=== PATIENT | male | born 1995 | race Caucasian/White ===

== ENCOUNTER 2017-04-29 06:24 | Emergency (ER) | payer OTHER ==
[~2017-04-29] VITALS: Ht 177.8 cm; Wt 120.5 kg
[~2017-04-29 06:24] MED LIST: /LEVE75TA PO; ACET30TAB PO; CIPR-249 PO; FLOM5CAP PO; FOLI1TAB4 PO; FOLI1TAB86 PO; KEPP1TAB2 PO; LEVA1TAB2 PO; OXYCO5TA PO; PERC5TAB12 PO; TYLE650T25 PO
[2017-04-29 06:29] VITALS: BP 159/99
[2017-04-29] MEDS ORDERED: AMOX500C PO (06:33)
[2017-04-29] MEDS ORDERED: MOTR200T44 PO (06:33)
[2017-04-29] MEDS ORDERED: IBUPROFEN 800 MG TAB PO ONE (06:45)
[2017-04-29] MEDS ORDERED: CLINDAMYCIN 150 MG CAP PO ONE (06:45)
[2017-04-29] MEDS ORDERED: CLIN150C14 PO (06:47)
[2017-04-29] MEDS ORDERED: IBUP80TA PO (06:47)
== END 2017-04-29 06:59 | disposition home or self-care (01) ==
LOC: M ED 06:24
DX: K04.7 Periapical abscess without sinus (principal); S02.5XXA Fracture of tooth (traumatic), initial encounter for closed fracture; X58.XXXA Exposure to other specified factors, initial encounter; Y92.89 Other specified places as the place of occurrence of the external cause; Y93.89 Activity, other specified; Y99.8 Other external cause status; R56.9 Unspecified convulsions; E73.9 Lactose intolerance, unspecified; K76.9 Liver disease, unspecified; F41.9 Anxiety disorder, unspecified; F33.9 Major depressive disorder, recurrent, unspecified; F81.9 Developmental disorder of scholastic skills, unspecified; F17.210 Nicotine dependence, cigarettes, uncomplicated

== ENCOUNTER 2023-11-12 18:17 | Emergency (ER) | payer OTHER, SELFPAY ==
[~2023-11-12] VITALS: Ht 177.8 cm; Wt 127.0 kg
[~2023-11-12 18:17] MED LIST changes: -/LEVE75TA PO; +ACET-716 PO; -ACET30TAB PO; +AMOX500C PO; +CLIN150C17 PO; +FLOM0.4C39 PO; -FLOM5CAP PO; +FOLI1TAB11 PO; -FOLI1TAB4 PO; +IBUP80TA PO; +MOTR200T44 PO; +OXYC-517 PO; -OXYCO5TA PO
[2023-11-12] MEDS ORDERED: BENZOCAINE 20% GEL 9GM TUBE (ANBESOL MAX STRENGTH) TOP ONE (19:30)
[2023-11-12] MEDS ORDERED: ACETAMINOPHEN 500 MG TAB PO ONE (19:30)
[2023-11-12] MEDS ORDERED: IBUPROFEN 800 MG TAB PO ONE (19:30)
[2023-11-12] MEDS ORDERED: IBUP80TA PO (20:29)
[2023-11-12] MEDS ORDERED: HYDR-3713 PO (20:29)
[2023-11-12] MEDS ORDERED: AMOX875T2 PO (20:29)
[2023-11-12 20:37] VITALS: BP 144/73; TEMP 97.2; O2SAT 98
== END 2023-11-12 20:38 | disposition home or self-care (01) ==
LOC: M ED 18:17
DX: K03.81 Cracked tooth (principal); F17.290 Nicotine dependence, other tobacco product, uncomplicated; Z79.1 Long term (current) use of non-steroidal anti-inflammatories (NSAID); Z79.2 Long term (current) use of antibiotics

== ENCOUNTER 2025-08-21 15:00 | Emergency (ER) | payer OTHER, SELFPAY ==
[~2025-08-21] VITALS: Ht 177.8 cm; Wt 143.3 kg
[~2025-08-21 15:00] MED LIST changes: +AMOX875T2 PO; -FLOM0.4C39 PO; +HYDR-3713 PO; +TAMS-18 PO
[2025-08-21 15:09] VITALS: BP 140/91; TEMP 98; O2SAT 98
[2025-08-21] MEDS: LIDOCAINE 2% MDV 20 ML VIAL SC ONE (18:10)
[2025-08-21] MEDS ORDERED: CEPH500C PO (19:00)
== END 2025-08-21 19:10 | disposition home or self-care (01) ==
LOC: M ED 15:00
DX: S90.852A Superficial foreign body, left foot, initial encounter (principal); X58.XXXA Exposure to other specified factors, initial encounter; Y92.9 Unspecified place or not applicable; Y93.9 Activity, unspecified; Y99.9 Unspecified external cause status